=== PATIENT | female | born 1970 | race Caucasian/White ===

== ENCOUNTER 2017-03-02 19:16 | Inpatient (IN) | payer OTHER ==
[2017-03-02] MEDS ORDERED: ONDANSETRON HCL/PF 4 MG/ 2ML VIAL IVP ONE (19:43)
[2017-03-02] MEDS ORDERED: 0.9 % SODIUM CHLORIDE 1,000 ML IV ONE (19:43)
[2017-03-02 20:20] LABS: BASOPHILS % 0.4 (0.0-1.5); EOSINOPHILS % 1.1 % (0.0-6.8); MEAN CORPUSCULAR HEMOGLOBIN 30.1 pg (28.0-34.0); MONOCYTES % 4.3 % (0.0-11.0); NEUTROPHILS # 22.2 # k/uL (1.4-7.7)
[2017-03-02 20:33] LABS: eGFR (African) > 60; eGFR (Non-African) > 60
[2017-03-02] MEDS ORDERED: INSULIN REGULAR, HUMAN 100 UNIT/ML 3ML VIAL SQ ONE (21:15)
[2017-03-02] MEDS ORDERED: VANCOMYCIN HCL 1.25 GM in 0.9 % SODIUM CHLORIDE 500 ML IV ONE (21:16)
--- NOTE | 2017-03-02 21:18 | ED Physician Documentation ---
General Adult - HISTORIAN Historian: patient - HPI Stated Complaint: Michael-rectal abcess Chief Complaint: General Adult Onset: days ago Timing: still present Severity: moderate Further Comments: yes (Pt is a 46 yo female with a michael-rectal abscess. Pt had abscess lanced yesterday with her pcp and was started on Doxycycline 100 mg po bid. Pt has been feeling ill today with nausea and fever. Pt has hx of MRSA infections.) - ROS CONST: chills, other (malaise) EYES/ENT: none CVS/RESP: none GI/: nausea MS/SKIN/LYMPH: other (perirectal abscess) - PAST HX Past History: other (DM, GERD, HTN, HLD) Allergies/Adverse Reactions: Allergies Allergy/AdvReac Type Severity Reaction Status Date / Time Penicillins Allergy Intermediate Verified 03/02/17 20:02 Home Medications: Ambulatory Orders Medication Instructions Recorded Gabapentin [Gabapentin] 1 cap PO TID 07/05/13 Losartan Potassium [Losartan 1 tab PO DAILY 10/27/14 Potassium] Metformin HCl [Glucophage] 1 tab PO BID 10/27/14 Omeprazole [Omeprazole] 1 tab PO DAILY 10/27/14 Atorvastatin Calcium [Lipitor] 40 mg PO DAILY 02/19/15 Doxycycline Hyclate 100 mg PO BID 03/02/17 Ondansetron HCl Rapdis [Zofran Odt] 8 mg PO Q8 03/02/17 - SOCIAL HX Smoking History: non-smoker - FAMILY HX Family History: No - VITAL SIGNS Vital Signs: Vital Signs Temp Pulse Resp BP Pulse Ox 100.4 F H 121 H 18 135/73 93 03/02/17 19:25 03/02/17 19:25 03/02/17 19:25 03/02/17 19:25 03/02/17 19:25 - REVIEWED ASSESSMENTS Nursing Assessment Reviewed: Yes Vitals Reviewed: Yes Progress - Progress Progress: NS 1 L IVF Zofran 4 mg IV Insulin regular, 10 units sq Vancomycin 125 mg IV Admit to [facility] ED Results Lab/Radiology - Lab Results Lab Results: Lab Results 03/02/17 03/02/17 20:15 20:15 WBC 25.80 K/ul H K/ul (4.00-12.00) RBC 4.76 M/ul M/ul (3.90-5.20) Hgb 14.4 g/dL g/dL (12.0-16.0) Hct 41.0 % % (34.5-46.5) MCV 86.0 fl fl (80.0-100.0) MCH 30.1 pg pg (28.0-34.0) MCHC 35.0 g/dL g/dL (30.0-36.0) RDW 13.2 % % (11.3-14.3) Plt Count 320 K/mm3 K/mm3 (130-400) Neut % (Auto) 85.8 % H % (39.0-79.0) Lymph % (Auto) 7.2 % L % (16.0-50.0) [place] % (Auto) 4.3 % % (0.0-11.0) Eos % (Auto) 1.1 % % (0.0-6.8) Baso % (Auto) 0.4 (0.0-1.5) Neut # (Auto) 22.2 # k/uL H # k/uL (1.4-7.7) Lymph # (Auto) 1.8 # k/uL # k/uL (0.6-4.0) [place] # (Auto) 1.1 # k/uL H # k/uL (0.0-0.9) Eos # (Auto) 0.3 # k/uL # k/uL (0.0-0.6) Baso # (Auto) 0.1 # k/uL # k/uL (0.0-0.5) Reactive Lymphs % 1.2 % % (0.0-5.0) Reactive Lymphs # 0.3 # k/uL # k/uL (0.0-0.8) Sodium 132 mmol/L L mmol/L (136-145) Potassium 4.2 mmol/L mmol/L (3.5-5.0) Chloride 96 mmol/L L mmol/L (98-110) Carbon Dioxide 28 mmol/L mmol/L (20-32) BUN 19 mg/dL mg/dL (10-26) Creatinine 1.0 mg/dL mg/dL (0.4-1.5) Estimated Creat Clear 130 Est GFR ( Amer) > 60 (60 - ) Est GFR (Non-Af Amer) > 60 (60 - ) Glucose 396 mg/dL H mg/dL (70-99) Calcium 10.6 mg/dL H mg/dL (8.5-10.5) Total Bilirubin 0.3 mg/dL mg/dL (0.2-1.2) AST 15 U/L U/L (0-41) ALT 13 U/L U/L (0-45) Alkaline Phosphatase 118 U/L H U/L (46-116) Total Protein 7.5 g/dL g/dL (6.0-8.5) Albumin 4.2 g/dL g/dL (3.0-5.5) - Orders Orders: ED Orders Category Date Time Status Place IV Lock 1T Care 03/02/17 19:42 Active BLOOD CULTURE Stat Lab 03/02/17 Ordered CBC/PLATELET/DIFF Routine Lab 03/02/17 20:15 Completed CMP Routine Lab 03/02/17 20:15 Completed UA [URINALYSIS] Routine Lab 03/02/17 Ordered 0.9 % Sodium Chloride [Normal Saline] 1,000 ml Med 03/02/17 19:43 Discontinued IV Q1H Ondansetron HCl/Pf [Zofran 4 mg/2 ml] Med 03/02/17 19:43 Discontinued 4 mg IVP NOW ONE General Adult Physical Exam - PHYSICAL EXAM GENERAL APPEARANCE: moderate distress EENT: pharynx normal NECK: normal inspection, supple RESPIRATORY: no resp distress, chest non-tender, breath sounds normal CVS: reg rate & rhythm, heart sounds normal ABDOMEN: soft, no organomegaly, normal bowel sounds BACK: normal inspection, no CVA tenderness SKIN: other (Michael-rectal abscess, 8 cm diameter) EXTREMITIES: non-tender, normal range of motion, no evidence of injury NEURO: oriented X3, motor nml, sensation nml Discharge Clincal Impression: Abscess, Sepsis, Hyperglycemia, Diabetes Referrals: Iron Bill DO [REFERRING] - Home Medications: Ambulatory Orders Gabapentin [Gabapentin] 1 cap PO TID 07/05/13 Losartan Potassium [Losartan Potassium] 1 tab PO DAILY 10/27/14 Metformin HCl [Glucophage] 1 tab PO BID 10/27/14 Omeprazole [Omeprazole] 1 tab PO DAILY 10/27/14 Atorvastatin Calcium [Lipitor] 40 mg PO DAILY 02/19/15 Doxycycline Hyclate 100 mg PO BID 03/02/17 Ondansetron HCl Rapdis [Zofran Odt] 8 mg PO Q8 03/02/17 Condition: Stable Disposition: 09 ADMITTED INPATIENT Decision to Admit: [id number] Decision Time: 21:25
[2017-03-02] MEDS ORDERED: ONDANSETRON HCL 4 MG TAB.RAPDIS PO PRN (21:37)
[2017-03-02] MEDS ORDERED: DOXYCYCLINE MONOHYDRATE 100 MG CAPSULE PO ONE (21:38)
[2017-03-02] MEDS ORDERED: ACETAMINOPHEN 500 MG TABLET PO ONE (21:44)
[2017-03-02] MEDS ORDERED: ACETAMINOPHEN 500 MG TABLET ONE (21:45)
[2017-03-02] MEDS ORDERED: IBUPROFEN 400 MG TABLET PO PRN (21:46)
[2017-03-02] MEDS: DOXYCYCLINE MONOHYDRATE 100 MG CAPSULE PO SCH (22:11)
[2017-03-02 22:30] VITALS: BMI 35.9
[2017-03-02] MEDS: 0.9 % SODIUM CHLORIDE 1,000 ML IV SCH ×2 (23:58→23:59)
[2017-03-03] MEDS: ACETAMINOPHEN 325 MG TABLET PO PRN ×3 (04:25→19:44)
[2017-03-03 05:37] LABS: APPEARANCE,URINE CLOUDY (CLEAR); COLOR,URINE YELLOW (YELLOW); OCCULT BLOOD,URINE 1+ (NEGATIVE); PH URINE 5.5 (5.0 - 8.0)
[2017-03-03 07:21] LABS: MEAN CORPUSCULAR VOLUME 86.6 fl (80.0-100.0)
[2017-03-03 07:22] LABS: MEAN CORPUSCULAR HEMOGLOBIN 30.8 pg (28.0-34.0)
[2017-03-03 07:23] LABS: BASOPHILS % 1.1 (0.0-1.5); EOSINOPHILS % 0.6 % (0.0-6.8); MONOCYTES % 4.4 % (0.0-11.0)
[2017-03-03] MEDS: INSULIN REGULAR, HUMAN 100 UNIT/ML 3ML VIAL SQ SCH ×4 (07:35→19:52)
[2017-03-03 07:48] LABS: eGFR (African) > 60; eGFR (Non-African) > 60
--- NOTE | 2017-03-03 08:18 | History and Physical Report ---
History of Present Illnes - History of Present Illness Reason for Visit: Elevated white count with acute skin infection and elevated blood sugars. History of Present Illness: 46 year old female presented to the ER after not feeling well. She noted she had seen her primary the day before and had an abscess in her rectal area drained. She noted she had picked up the prescription for Doxycycline until yesterday and so had only taken one or two doses. She states last night she felt like she was running a fever and was not feeling well. She states the infected area on her bottom was draining and very red. She was found to have a fever of 101 in the ER and an elevated WBC. She states she was given IV antibiotics in the ER and is feeling a lot better this morning. She notes she feels like she stinks and would like to leave. She states when she was admitted she only agreed to stay one night and is now ready to leave. She as agreed to stay for another dose of antibiotics. She states her blood sugars have been high and she was prescribed insulin by her PCP, oNva Monreal NP. She states it cost too much and so she has not been using it. She notes Nova Monreal has been trying to find a way to get her the medication for cheaper but she is still working on it. She denies any other concerns today. - Past Medical History Cardiac: HTN, Hyperlipidemia Pulmonary: denies: Asthma PHP CONSULTANT: Peripheral neuropathy Endocrine: Diabetes Dermatology: Other (abscess of left buttock ) - Past Surgical History Past Surgical History: Cholecystectomy, Hysterectomy - Past Social History Smoke: 1 pack per day, Quit (1 year ago) Alcohol: None Drugs: None Lives: Alone - Health Maintenance Health Maintenance: Influenza Vaccine. denies: Pneumococcal Vaccine Influenza Vaccine: Current for this Influenza Season Pneumonia Vaccine: No Resuscitation Status: Resusciation Status Resuscitation Status Full Code Review of Systems - Review of Systems Constitutional: Fever (on admission no fever now) Eyes: negative: vision change ENT: negative: Ear Pain Respiratory: negative: Cough, SOB with Excertion Cardiovascular: negative: Chest Pain Gastrointestinal: negative: Nausea, Melena Genitourinary: negative: Dysuria, Deferred Musculoskeletal: negative: Back Pain, Leg Pain Skin: Other (abscess left buttock that has been drained and was lanced by Nova Monreal on 03/01/2017) Neurological: negative: Weakness, Numbness, Change in Speech, Confusion - Medications/Allergies Allergies/Adverse Reactions: Allergies Allergy/AdvReac Type Severity Reaction Status Date / Time Penicillins Allergy Intermediate Verified 03/02/17 20:02 Home Medications: Home Medications Doxycycline Hyclate 100 mg PO BID 03/02/17 Ondansetron HCl Rapdis [Zofran Odt] 8 mg PO Q8 03/02/17 Current Inpatient Medications: Current Inpatient Medications Acetaminophen (Tylenol) 650 mg PO Q6H PRN PRN Reason: Fever >101 Last Admin: 03/03/17 04:25 Dose: 650 mg Atorvastatin Calcium (Lipitor) 40 mg PO HS SARAHI Doxycycline Monohydrate (Vibramycin) 100 mg PO BID [facility] Stop: 03/12/17 21:59 Last Admin: 03/02/17 22:11 Dose: Not Given Gabapentin (Neurontin) mg PO TID [facility] Sodium Chloride (Normal Saline) 1,000 mls @ 100 mls/hr IV Q10H [facility] Last Admin: 03/02/17 23:59 Dose: Not Given Vancomycin HCl 1.25 gm/ Sodium (Chloride) 250 mls @ 250 mls/hr IV QD [facility] Ibuprofen (Advil) 400 mg PO Q8H PRN PRN Reason: PAIN OR TEMPERATURE > 101 Insulin Human Regular (Humulin R) 0 unit SQ CHEMQID SARAHI PRN Reason: Protocol Last Admin: 03/03/17 07:35 Dose: 6 unit Losartan Potassium (Cozaar) mg PO DAILY [facility] Metformin HCl (Glucophage) mg PO BID [facility] Miscellaneous (Chem Sticks) 1 each CHEMQID [facility] Last Admin: 03/03/17 07:33 Dose: 1 each Ondansetron HCl (Zofran Odt) 8 mg PO Q8 PRN PRN Reason: Nausea / Vomiting Pantoprazole Sodium (Protonix) 40 mg PO DAILY [facility] Exam - Exam Vital Signs: Vital Signs (72 hours) 03/02/17 03/02/17 03/03/17 22:00 22:26 02:00 Temperature 101.9 F H 104.1 F H 100.8 F H Pulse Rate [ 127 H 118 H 117 H Pulse ox] Respiratory 20 20 24 Rate Blood Pressure 141/86 128/73 158/93 [Left Arm] O2 Sat by Pulse 95 93 95 Oximetry 03/03/17 06:00 Temperature 101.8 F H Pulse Rate [ 126 H Pulse ox] Respiratory 24 Rate Blood Pressure 166/90 [Left Arm] O2 Sat by Pulse 93 Oximetry General: Alert, Oriented to Person, Oriented to Place, Oriented to Time, Cooperative HEENT: Atraumatic, PERRLA, EOMI, Mouth Mucous membr. moist/[place], Nose Mucous membr. moist/[place] Neck: Normal Range of Motion Lungs: Clear to auscultation, Normal air movement, Speaks full Sentences Cardiovascular: Regular rate, Normal S1, Normal S2 Abdomen: Normal bowel sounds, Soft, No tenderness Integumentary: Warm, Dry, Cellulitis, Erythema (Surrounding draining odorous abscess of left buttock that is very tender to palpation ) Extremities: No clubbing, No cyanosis, No edema, Normal pulses, No tenderness/ swelling Neurological: Normal gait, Normal speech, Strength Equal Bilat, Normal tone, Sensation intact Psych/Mental Status: Mental status NL, Mood NL, Appropriate Affect - Laboratory Results Laboratory Results: Laboratory Results 03/03/17 03/03/17 07:15 07:15 WBC 30.90 H RBC 3.84 L Hgb 11.9 L Hct 33.3 L MCV 86.6 MCH 30.8 MCHC 35.6 RDW 13.0 Plt Count 348 Neut % (Auto) 84.0 H Lymph % (Auto) 8.3 L [place] % (Auto) 4.4 Eos % (Auto) 0.6 Baso % (Auto) 1.1 Neut # (Auto) 26.0 H Lymph # (Auto) 2.6 [place] # (Auto) 1.4 H Eos # (Auto) 0.2 Baso # (Auto) 0.3 Reactive Lymphs % 1.6 Reactive Lymphs # 0.5 Sodium 132 L Potassium 3.8 Chloride 101 Carbon Dioxide 22 BUN 18 Creatinine 1.0 Estimated Creat Clear 127 Est GFR ( Amer) > 60 Est GFR (Non-Af Amer) > 60 Glucose 296 H Calcium 10.2 Total Bilirubin 0.3 AST 13 ALT 11 Alkaline Phosphatase 114 Total Protein 6.9 Albumin 3.9 Assessment/Plan - Assessment/Plan (1) Cellulitis and abscess of buttock Status: Acute Current Visit: Yes Assessment: Draining abscess of left buttock with large area of surrounding erythema. The area was lanced by Nova Morneal NP on 03/01/2017. Patient is running intermittent fever and was found to have a fever of 101 at time of admission. White blood cells count is elevated at time of admission at over 25,000 it was found to be even higher at this morning's blood draw at 30,000. The area is very tender to palpation and patient appears to be very uncomfortable when sitting on the area. The area is very malodorous. Plan: Blood cultures ordered in ER. Vancomycin started empirically in addition to oral doxycycline that was started by PCP Nova Monreal NP. Repeat WBC in am. Discussed with patient that this is a very serious infection that could result in severe infection and illness including but not limited to . Patient voices understanding an has agreed to stay one additional night for additional antibiotic treatment. (2) Diabetes type 2, uncontrolled Status: Acute Current Visit: Yes Assessment: Sugar elevated on admission at 396. She notes she has been prescribed insulin by her PCP, Nova Monreal NP however the medication is too expensive and she has not been taking it. She states Nova Monreal is aware that the medication is too expensive and is working on getting her the medication at a lower cost. She states she does not want to change her medication regimen at this time but rather follow up with Nova Monreal NP as outpatient. Plan: Patient will have QID chem checks and will receive insulin during her stay. Discussed with the patient the importance of controlling her blood sugar to assist with healing of the infection. She voices understanding and agrees to this plan. VTE Assessment - RISK FACTOR SCORE VTE RISK FACTOR SCORES: AGE 40-60 YEARS, OBESITY, SEPSIS - RISK VTE MODERATE RISK: SCORE OF 2 (RISK PROXIMAL DVT 2-4%) PROPHYAXIS NEEDED
[2017-03-03] MEDS: DOXYCYCLINE MONOHYDRATE 100 MG CAPSULE PO SCH ×2 (08:44→19:45)
[2017-03-03] MEDS: PANTOPRAZOLE SODIUM 40 MG TABLET PO SCH (08:44)
[2017-03-03] MEDS: VANCOMYCIN HCL 1.25 GM in 0.9 % SODIUM CHLORIDE 250 ML IV SCH (09:22)
[2017-03-03] MEDS ORDERED: SALINE FLUSH 10 ML DISP.SYRIN IVF ONE ×2 (09:29→11:37)
[2017-03-03] MEDS: LOSARTAN POTASSIUM 50 MG TABLET PO SCH (10:27)
[2017-03-03] MEDS: GABAPENTIN 300 MG CAPSULE PO SCH ×3 (10:27→18:30)
[2017-03-03] MEDS: ATORVASTATIN CALCIUM 80 MG TABLET PO SCH (19:47)
[2017-03-03] MEDS: 0.9 % SODIUM CHLORIDE 1,000 ML IV SCH (21:34)
[2017-03-04 06:04] LABS: BASOPHILS % 0.5 (0.0-1.5); EOSINOPHILS % 0.5 % (0.0-6.8); MEAN CORPUSCULAR HEMOGLOBIN 28.7 pg (28.0-34.0); MEAN CORPUSCULAR VOLUME 85.7 fl (80.0-100.0); MONOCYTES % 4.9 % (0.0-11.0)
[2017-03-04 06:30] LABS: eGFR (African) > 60; eGFR (Non-African) > 60
[2017-03-04] MEDS: 0.9 % SODIUM CHLORIDE 1,000 ML IV SCH ×2 (08:50→13:06)
[2017-03-04] MEDS: INSULIN REGULAR, HUMAN 100 UNIT/ML 3ML VIAL SQ SCH ×4 (08:51→20:25)
[2017-03-04] MEDS: GABAPENTIN 300 MG CAPSULE PO SCH ×3 (08:52→18:10)
[2017-03-04] MEDS: DOXYCYCLINE MONOHYDRATE 100 MG CAPSULE PO SCH ×2 (08:52→20:19)
[2017-03-04] MEDS: PANTOPRAZOLE SODIUM 40 MG TABLET PO SCH (08:52)
[2017-03-04] MEDS ORDERED: SALINE FLUSH 10 ML DISP.SYRIN IVF ONE (08:52)
[2017-03-04] MEDS: LOSARTAN POTASSIUM 50 MG TABLET PO SCH (08:53)
--- NOTE | 2017-03-04 08:53 | Inpatient Progress Note ---
Subjective - Required Recertification Statement I anticipate X number of days because-include discharge plan: >2 - Review of Systems Events since last encounter: The patient has had several dose of vancomycin IV and is getting doxycycline PO. She states she is feeling fine. She was found to be running a fever of 101 again last night. Her WBC is 29,000 today down from 30,000. Dr. Hammond was consulted to reiterate the importance of her staying until her infection is better under control. She has agreed to stay with us. She has been on insulin since her arrival but blood sugars are still elevated at over 300 on todays blood draw. Subjective: She notes her back is sore and she is ready to leave. She states she knows her WBC is still very elevated, she knows she has a very bad infection, and she knows that people sometimes from infections like this. She states she understands that she is very sick but would still like to leave today and follow up with her PCP as outpatient. She states she is having a little more pain today when sitting/putting pressure on her bottom. She states she is feeling well. She notes her sugars are up again and she did have some soda last night. She states she used to be on Glipizide for her diabetes and did well with that. She states she was going to talk to her PCP about restarting it since the insulin is too expensive. After taking to social services designee and Dr. Hammond she has agreed to stay another night. She denies feeling like she is having a fever or any other concerns at this time. General: Denies: Chills, Fatigue HEENT: Denies: Visual Changes Cardiovascular: Denies: Chest Pain, Light Headedness Gastrointestinal: Denies: Nausea, Vomiting, Abdominal Pain, Diarrhea, Constipation Genitourinary: Denies: Dysuria Musculoskeletal: Back Pain (stiff and sore muscles from sitting and laying in bed all day) Neurological: Other (diabetic neuropathy). Denies: Change in Speech, Confusion Objective - Exam Vitals and I&O: Vital Signs Temp 98.9 F 03/04/17 06:06 Pulse 116 H 03/04/17 06:06 Resp 16 03/04/17 06:06 BP 131/68 03/04/17 06:06 Pulse Ox 93 03/04/17 06:06 Intake & Output 03/03/17 03/03/1703/04/17 11:59 23:59 11:59 Intake Total 2500 2110 1000 Balance 2500 2110 1000 Weight 97.976 kg Intake: IV 1900 1400 1000 Left Hand 1900 1400 1000 Oral 600 710 Other: Voiding Method Toilet Toilet # Voids 2 3 4 General: Alert, Oriented to Person, Oriented to Place, Oriented to Time, Cooperative HEENT: Atraumatic, EOMI, Mouth Mucous membr. moist/[place], Nose Mucous membr. moist/[place] Neck: Supple Lungs: Clear to auscultation, Normal air movement, Speaks full Sentences Cardiovascular: Regular rate, Normal S1, Normal S2 Abdomen: Normal bowel sounds, Soft, No tenderness Extremities: No clubbing, No cyanosis, No edema, No tenderness/swelling Skin: Warm, Erythema (and odorous abscess of left buttock with surrounding induration and erythema) Neurological: Normal gait, Normal speech, Strength Equal Bilat, Normal tone Psych/Mental Status: Mental status NL, Mood NL, Appropriate Affect - Results Results: Laboratory Results WBC 29.60 K/ul (4.00-12.00) H 03/04/17 06:00 RBC 3.89 M/ul (3.90-5.20) L 03/04/17 06:00 Hgb 11.2 g/dL (12.0-16.0) L 03/04/17 06:00 Hct 33.3 % (34.5-46.5) L 03/04/17 06:00 MCV 85.7 fl (80.0-100.0) 03/04/17 06:00 MCH 28.7 pg (28.0-34.0) 03/04/17 06:00 MCHC 33.5 g/dL (30.0-36.0) 03/04/17 06:00 RDW 13.1 % (11.3-14.3) 03/04/17 06:00 Plt Count 352 K/mm3 (130-400) 03/04/17 06:00 Neut % (Auto) 81.0 % (39.0-79.0) H 03/04/17 06:00 Lymph % (Auto) 11.1 % (16.0-50.0) L 03/04/17 06:00 [place] % (Auto) 4.9 % (0.0-11.0) 03/04/17 06:00 Eos % (Auto) 0.5 % (0.0-6.8) 03/04/17 06:00 Baso % (Auto) 0.5 (0.0-1.5) 03/04/17 06:00 Neut # (Auto) 24.0 # k/uL (1.4-7.7) H 03/04/17 06:00 Lymph # (Auto) 3.3 # k/uL (0.6-4.0) 03/04/17 06:00 [place] # (Auto) 1.4 # k/uL (0.0-0.9) H 03/04/17 06:00 Eos # (Auto) 0.2 # k/uL (0.0-0.6) 03/04/17 06:00 Baso # (Auto) 0.2 # k/uL (0.0-0.5) 03/04/17 06:00 Reactive Lymphs % 2.0 % (0.0-5.0) 03/04/17 06:00 Reactive Lymphs # 0.6 # k/uL (0.0-0.8) 03/04/17 06:00 Sodium 131 mmol/L (136-145) L 03/04/17 06:00 Potassium 3.6 mmol/L (3.5-5.0) 03/04/17 06:00 Chloride 102 mmol/L (98-110) 03/04/17 06:00 Carbon Dioxide 21 mmol/L (20-32) 03/04/17 06:00 BUN 16 mg/dL (10-26) 03/04/17 06:00 Creatinine 1.0 mg/dL (0.4-1.5) 03/04/17 06:00 Estimated Creat Clear 127 03/04/17 06:00 Est GFR ( Amer) > 60 (60-) 03/04/17 06:00 Est GFR (Non-Af Amer) > 60 (60-) 03/04/17 06:00 Glucose 312 mg/dL (70-99) H 03/04/17 06:00 Calcium 9.4 mg/dL (8.5-10.5) 03/04/17 06:00 Total Bilirubin 0.2 mg/dL (0.2-1.2) 03/04/17 06:00 AST 16 U/L (0-41) 03/04/17 06:00 ALT 15 U/L (0-45) 03/04/17 06:00 Alkaline Phosphatase 120 U/L (46-116) H 03/04/17 06:00 Total Protein 6.3 g/dL (6.0-8.5) 03/04/17 06:00 Albumin 3.6 g/dL (3.0-5.5) 03/04/17 06:00 Urine Color Yellow (YELLOW) 03/02/17 21:05 Urine Appearance Cloudy (CLEAR) H 03/02/17 21:05 Urine pH 5.5 (5.0 - 8.0) 03/02/17 21:05 Ur Specific [place] 1.025 (1.010-1.030) 03/02/17 21:05 Urine Protein 3+ mg/dL (NEGATIVE) H 03/02/17 21:05 Urine Ketones Negative mg/dL (NEGATIVE) 03/02/17 21:05 Urine Occult Blood 1+ (NEGATIVE) H 03/02/17 21:05 Urine Nitrite Negative (NEGATIVE) 03/02/17 21:05 Urine Bilirubin Negative (NEGATIVE) 03/02/17 21:05 Urine Urobilinogen 1.0 Eu (0.2-1.0) 03/02/17 21:05 Ur Leukocyte Esterase Negative (NEGATIVE) 03/02/17 21:05 Urine Glucose 2+ mg/dL (NEGATIVE) H 03/02/17 21:05 - Procedures Procedures: US of left buttock Assessment/Plan - Assessment/Plan (1) Cellulitis and abscess of buttock Status: Acute Current Visit: Yes Assessment: Area of erythema and induration is slightly more firm today. Case was discussed with Dr. Hammond and it was determined that an US will be ordered to ensure there is no pus pocket beneath the skin. Vancomycin will be continued IV and a trough will be checked in the morning. Doxycycline will be continued PO. Preliminary wound culture obtained from Nova Monreal's office which shows Group B strep and staph aureus. Sensitivities are pending. Blood cultures are still pending. Patient ran a fever overnight again of 101. WBC count remains elevated at 29,000 today. Plan: Continue Vancomycin IV and doxycycline PO. US of area ordered to look for fluid collection that may require surgical drainage. Will follow up with Nova Monreal's office for sensitivity report when available. Blood cultures are still pending. Patient has agreed to stay for another night for additional antibiotic treatment. (2) Diabetes type 2, uncontrolled Status: Acute Current Visit: Yes Assessment: Blood sugars remain elevated. Discussed with patient who states she used to take Glipizide. She states she would like to resume glipizide in addition to her insulin and metformin. She notes she did have soda last night but has been trying to drink only water today since her sugars are up still. Plan: Watch diet and try to drink less sugary drinks. Add glipizide.
[2017-03-04] MEDS: VANCOMYCIN HCL 1.25 GM in 0.9 % SODIUM CHLORIDE 250 ML IV SCH (09:32)
--- NOTE | 2017-03-04 13:40 | Diagnostic Imaging Report ---
[facility] [id number] [id number] Report Submission Date: Mar 04, 2017 1:14:28 PM CDT Patient Study Name: GRAZYNA STOVALL Date: Mar 04, 2017 12:30:04 PM CDT Modality Type: US Gender: F Description: ULTRASOUND UNLISTED PROC : 70 Institution: [facility] Physician: [facility] Ultrasound left buttock Clinical history: Pain, redness and swelling with elevated white cell count. The patient is on antibiotics. Technique: Real time sonography of the left buttock is performed in transverse and longitudinal views. Findings: There is a skin thickening and interstitial edema throughout the visualized area. There is no drainable fluid collection to suggest abscess. There are echogenic areas with "dirty" shadowing consistent with air in the subcutaneous soft tissues. Impression: 1. Interstitial edema and subcutaneous air. Rule out necrotizing infection. 2. No drainable fluid collection. Electronically signed on Mar 04, 2017 1:14:28 PM CDT by: Thomas COX
[2017-03-04] MEDS: ATORVASTATIN CALCIUM 80 MG TABLET PO SCH (20:19)
[2017-03-05] MEDS: INSULIN REGULAR, HUMAN 100 UNIT/ML 3ML VIAL SQ SCH ×4 (07:52→20:34)
[2017-03-05] MEDS ORDERED: SALINE FLUSH 10 ML DISP.SYRIN IVF ONE (09:07)
[2017-03-05 09:23] LABS: BASOPHILS % 0.4 (0.0-1.5); EOSINOPHILS % 1.3 % (0.0-6.8); MEAN CORPUSCULAR HEMOGLOBIN 29.4 pg (28.0-34.0); MEAN CORPUSCULAR VOLUME 85.7 fl (80.0-100.0); MONOCYTES % 4.7 % (0.0-11.0); NEUTROPHILS # 23.2 # k/uL (1.4-7.7)
[2017-03-05 09:31] LABS: eGFR (African) > 60; eGFR (Non-African) > 60
[2017-03-05] MEDS: GABAPENTIN 300 MG CAPSULE PO SCH ×3 (09:58→16:57)
[2017-03-05] MEDS: DOXYCYCLINE MONOHYDRATE 100 MG CAPSULE PO SCH ×2 (09:58→20:37)
[2017-03-05] MEDS: PANTOPRAZOLE SODIUM 40 MG TABLET PO SCH (09:58)
[2017-03-05] MEDS: LOSARTAN POTASSIUM 50 MG TABLET PO SCH (10:03)
[2017-03-05] MEDS: VANCOMYCIN HCL 1.25 GM in 0.9 % SODIUM CHLORIDE 250 ML IV SCH (10:39)
[2017-03-05] MEDS: 0.9 % SODIUM CHLORIDE 1,000 ML IV SCH (13:19)
[2017-03-05] MEDS: IBUPROFEN 200 MG TABLET PO PRN ×2 (13:21→20:38)
--- NOTE | 2017-03-05 17:37 | Inpatient Progress Note ---
Subjective - Required Recertification Statement I anticipate X number of days because-include discharge plan: 2 - Review of Systems Events since last encounter: Patient's Vancomycin Trough was drawn this morning and was found to be 6.7. Glipizide was added back to her diabetes regimen. Blood sugar this morning was 189 which is considerably better than it was on admission. US was done yesterday and no pus pocket was found. Patient states she feels fine and is ready to go home anytime. Her WBC count was down to 27,000 today. Subjective: Patient appears to be more willing to stay until her white count is down today. She states she is having a little less pain today compared to when sitting/ putting pressure on her bottom. She states she is feeling well. She notes her sugars are doing a lot better today. She states she used to be on Glipizide for her diabetes and did well with that. She denies feeling like she is having a fever or any other concerns at this time. General: Denies: Chills, Fatigue HEENT: Denies: Head Aches Cardiovascular: Denies: Chest Pain Gastrointestinal: Denies: Nausea, Vomiting, Abdominal Pain Objective - Exam Vitals and I&O: Vital Signs Temp 97.3 F L 03/05/17 14:00 Pulse 91 H 03/05/17 14:00 Resp 18 03/05/17 14:00 BP 118/52 03/05/17 14:00 Pulse Ox 97 03/05/17 14:00 Intake & Output 03/04/17 03/05/17 03/05/17 23:59 11:59 23:59 Intake Total 1870 680 980 Balance 1870 680 980 Intake: IV 860 Right Hand 860 Oral 1010 470 980 Other 210 Other: Voiding Method Toilet Toilet # Voids 4 3 2 General: Alert, Oriented to Person, Oriented to Place, Oriented to Time, Cooperative HEENT: Atraumatic, Mouth Mucous membr. moist/[place], Nose Mucous membr. moist/[place] Neck: Supple Lungs: Clear to auscultation Cardiovascular: Regular rate, Normal S1, Normal S2 Abdomen: Normal bowel sounds, Soft, No tenderness Extremities: No clubbing, No cyanosis, No edema, Normal pulses Skin: Warm, Erythema (slowly improving erythema with assocaited draining malodorous abdscess that is still very tender to palpation.) Neurological: Normal gait, Strength Equal Bilat, Normal tone Psych/Mental Status: Mental status NL, Mood NL - Results Results: Laboratory Results WBC 27.90 K/ul (4.00-12.00) H 03/05/17 08:50 RBC 3.75 M/ul (3.90-5.20) L 03/05/17 08:50 Hgb 11.0 g/dL (12.0-16.0) L 03/05/17 08:50 Hct 32.1 % (34.5-46.5) L 03/05/17 08:50 MCV 85.7 fl (80.0-100.0) 03/05/17 08:50 MCH 29.4 pg (28.0-34.0) 03/05/17 08:50 MCHC 34.3 g/dL (30.0-36.0) 03/05/17 08:50 RDW 13.2 % (11.3-14.3) 03/05/17 08:50 Plt Count 436 K/mm3 (130-400) H 03/05/17 08:50 Neut % (Auto) 83.1 % (39.0-79.0) H 03/05/17 08:50 Lymph % (Auto) 9.3 % (16.0-50.0) L 03/05/17 08:50 [place] % (Auto) 4.7 % (0.0-11.0) 03/05/17 08:50 Eos % (Auto) 1.3 % (0.0-6.8) 03/05/17 08:50 Baso % (Auto) 0.4 (0.0-1.5) 03/05/17 08:50 Neut # (Auto) 23.2 # k/uL (1.4-7.7) H 03/05/17 08:50 Lymph # (Auto) 2.6 # k/uL (0.6-4.0) 03/05/17 08:50 [place] # (Auto) 1.3 # k/uL (0.0-0.9) H 03/05/17 08:50 Eos # (Auto) 0.4 # k/uL (0.0-0.6) 03/05/17 08:50 Baso # (Auto) 0.1 # k/uL (0.0-0.5) 03/05/17 08:50 Reactive Lymphs % 1.3 % (0.0-5.0) 03/05/17 08:50 Reactive Lymphs # 0.4 # k/uL (0.0-0.8) 03/05/17 08:50 Sodium 134 mmol/L (136-145) L 03/05/17 08:50 Potassium 3.6 mmol/L (3.5-5.0) 03/05/17 08:50 Chloride 106 mmol/L (98-110) 03/05/17 08:50 Carbon Dioxide 21 mmol/L (20-32) 03/05/17 08:50 BUN 20 mg/dL (10-26) 03/05/17 08:50 Creatinine 1.0 mg/dL (0.4-1.5) 03/05/17 08:50 Estimated Creat Clear 127 03/05/17 08:50 Est GFR ( Amer) > 60 (60-) 03/05/17 08:50 Est GFR (Non-Af Amer) > 60 (60-) 03/05/17 08:50 Glucose 182 mg/dL (70-99) H 03/05/17 08:50 Calcium 8.9 mg/dL (8.5-10.5) 03/05/17 08:50 Total Bilirubin 0.2 mg/dL (0.2-1.2) 03/04/17 06:00 AST 16 U/L (0-41) 03/04/17 06:00 ALT 15 U/L (0-45) 03/04/17 06:00 Alkaline Phosphatase 120 U/L (46-116) H 03/04/17 06:00 Total Protein 6.3 g/dL (6.0-8.5) 03/04/17 06:00 Albumin 3.6 g/dL (3.0-5.5) 03/04/17 06:00 Urine Color Yellow (YELLOW) 03/02/17 21:05 Urine Appearance Cloudy (CLEAR) H 03/02/17 21:05 Urine pH 5.5 (5.0 - 8.0) 03/02/17 21:05 Ur Specific [place] 1.025 (1.010-1.030) 03/02/17 21:05 Urine Protein 3+ mg/dL (NEGATIVE) H 03/02/17 21:05 Urine Ketones Negative mg/dL (NEGATIVE) 03/02/17 21:05 Urine Occult Blood 1+ (NEGATIVE) H 03/02/17 21:05 Urine Nitrite Negative (NEGATIVE) 03/02/17 21:05 Urine Bilirubin Negative (NEGATIVE) 03/02/17 21:05 Urine Urobilinogen 1.0 Eu (0.2-1.0) 03/02/17 21:05 Ur Leukocyte Esterase Negative (NEGATIVE) 03/02/17 21:05 Urine Glucose 2+ mg/dL (NEGATIVE) H 03/02/17 21:05 Vancomycin Trough 6.7 ug/mL (10.0-20.0) L 03/05/17 08:50 Assessment/Plan - Assessment/Plan (1) Cellulitis and abscess of buttock Status: Acute Current Visit: Yes Assessment: Vancomycin trough level was 6.7. WBC count was slightly improved today at 27, 000. Patient's discomfort with sitting is slightly improved today. Erythema and inflammation associated with the infection are improving some but slowly. Plan: Increase Vancomycin dosing to 1g BID. Continue Doxycycline. Will continue to be in contact with [facility] office to get wound culture results as soon as possible. Ibuprofen ordered for swelling and pain PRN. (2) Diabetes type 2, uncontrolled Status: Acute Current Visit: Yes Assessment: Blood sugars are better today and are below 100. Patient would like to continue glipizide on discharge. She states she did better with her diet yesterday. Plan: Continue QID monitoring. Continue glipizide and insulin. Patient to continue to monitor diet.
[2017-03-05] MEDS: ATORVASTATIN CALCIUM 80 MG TABLET PO SCH (20:37)
[2017-03-05] MEDS: VANCOMYCIN HCL 1 GM in 0.9 % SODIUM CHLORIDE 250 ML IV SCH (20:40)
[2017-03-06 06:13] LABS: BASOPHILS % 0.7 (0.0-1.5); EOSINOPHILS % 2.1 % (0.0-6.8); MEAN CORPUSCULAR HEMOGLOBIN 29.3 pg (28.0-34.0); MEAN CORPUSCULAR VOLUME 86.6 fl (80.0-100.0); MONOCYTES % 5.5 % (0.0-11.0); NEUTROPHILS # 17.2 # k/uL (1.4-7.7)
[2017-03-06] MEDS: INSULIN REGULAR, HUMAN 100 UNIT/ML 3ML VIAL SQ SCH ×2 (07:31→11:52)
[2017-03-06] MEDS: PANTOPRAZOLE SODIUM 40 MG TABLET PO SCH (08:46)
[2017-03-06] MEDS: DOXYCYCLINE MONOHYDRATE 100 MG CAPSULE PO SCH (08:46)
[2017-03-06] MEDS: LOSARTAN POTASSIUM 50 MG TABLET PO SCH (08:46)
[2017-03-06] MEDS: ACETAMINOPHEN 325 MG TABLET PO PRN (08:46)
[2017-03-06] MEDS: GABAPENTIN 300 MG CAPSULE PO SCH (08:46)
[2017-03-06] MEDS: VANCOMYCIN HCL 1 GM in 0.9 % SODIUM CHLORIDE 250 ML IV SCH (09:26)
[2017-03-06] MEDS: 0.9 % SODIUM CHLORIDE 1,000 ML IV SCH (09:30)
[2017-03-06 13:24] VITALS: BP 185/88
--- NOTE | 2017-03-08 09:29 | Discharge Summary ---
DATE OF ADMISSION: March 02, 2017 DATE OF DISCHARGE: March 06, 2017 DIAGNOSES ON THIS HOSPITALIZATION: 1. Cellulitis of buttocks. 2. Diabetes mellitus type 2, uncontrolled. 3. Hypertension. SUMMARIZATION OF ADMISSION HISTORY AND PHYSICAL: This is a 46-year-old female who presented to the emergency room with generally not feeling very well. She had seen her primary care provider, which is [facility], and had an abscess over her left ischium. Cultures were obtained. She was started on doxycycline but she continued to get worse. She had a fever. She was not feeling well and she presented to the emergency room with a fever of 101 and a white count of 30,000. In the emergency department, blood cultures were drawn, however, those were no growth, likely because she had been on doxycycline before they were drawn. We are still waiting on the final wound cultures which were obtained in [facility] office; however, they have grown out Strep, which is going to be fairly pansensitive and some Staph, which we are still waiting for the results on. HOSPITAL COURSE: She was admitted. She was started on IV Vancomycin. She was initially on 1250 mg IV daily. Her white count really did not come down significantly. On hospital day 4, it was increased to 1000 mg IV b.i.d. based on a trough report being somewhat low. Her renal function was stable during this hospitalization. She was discharged to home to return for IV infusions of vancomycin 1 gram IV b.i.d., which will be done in the [facility]fusion [facility]. The rest of her medications are as follows on discharge. MEDICATIONS ON DISCHARGE: 1. Atorvastatin 40 mg p.o. b.i.d. 2. Doxycycline 100 mg p.o. b.i.d. A prescription for this was sent to [facility]. 3. Gabapentin 300 mg p.o. t.i.d. 4. Glipizide 5 mg p.o. b.i.d. A prescription for this was sent to [facility]. 5. Ibuprofen 200 mg 2 to 4 tablets p.o. every 6 hours p.r.n. pain. 6. Losartan 50 mg p.o. daily. 7. Metformin 1000 mg p.o. b.i.d. 8. Protonix 40 mg p.o. daily. 9. Vancomycin will be as previously stated and given in the Infusion Center and will be at 1000 mg IV every 12 hours. cc: [facility] MTDD
== END 2017-03-06 15:08 | disposition home or self-care (01) | DRG 638 ==
LOC: ED 19:16 → SOUTH 21:40
PROVIDERS: ADMIT Physician Assistant; ATTEND Family Medicine
DX: E11.628 Type 2 diabetes mellitus with other skin complications (principal); L03.317 Cellulitis of buttock; I10 Essential (primary) hypertension
CPT/HCPCS: 36415; 76999; 80048; 80053; 80202; 81002; 85025; 87040; J1815; J2405; J3370; J7030; J7050; J7060; 99222; 99232; 99238; 99284; S1016

== ENCOUNTER 2017-03-06 21:00 | Outpatient (CLI) | payer OTHER ==
[2017-03-06 13:24] VITALS: BP 185/88
[~2017-03-06 21:00] MED LIST: 0.9 % SODIUM CHLORIDE 250 ML IV ONE; 0.9 % SODIUM CHLORIDE 250 ML IV.SOLN IV ONE; SALINE FLUSH 10 ML DISP.SYRIN IVF ONE; VANCOMYCIN HCL 1 GM VIAL IV ONE
== END 2017-03-06 21:02 ==
LOC: INF 21:00
PROVIDERS: ATTEND Family Medicine
DX: A41.9 Sepsis, unspecified organism (principal); R73.9 Hyperglycemia, unspecified
CPT/HCPCS: J3370; J7050; 96365

== ENCOUNTER 2017-03-07 08:49 | Outpatient (CLI) | payer OTHER ==
[2017-03-06 13:24] VITALS: BP 185/88
[2017-03-07] MEDS: SALINE FLUSH 10 ML DISP.SYRIN IV ONE (09:00)
[2017-03-07] MEDS ORDERED: VANCOMYCIN HCL 1 GM VIAL IV ONE ×4 (09:00→20:59)
[2017-03-07] MEDS ORDERED: 0.9 % SODIUM CHLORIDE 250 ML IV.SOLN IV ONE ×2 (09:00)
[2017-03-07] MEDS ORDERED: SALINE FLUSH 10 ML DISP.SYRIN IVF ONE ×2 (09:00)
[2017-03-07] MEDS: VANCOMYCIN HCL 1 GM in 0.9 % SODIUM CHLORIDE 500 ML IV ONE (09:00)
[2017-03-07] MEDS ORDERED: 0.9 % SODIUM CHLORIDE 250 ML IV ONE ×2 (09:03→20:59)
== END 2017-03-07 08:50 ==
LOC: INF 08:49
PROVIDERS: ATTEND Family Medicine
DX: A41.9 Sepsis, unspecified organism (principal); R73.9 Hyperglycemia, unspecified
CPT/HCPCS: 96365; 96366; J3370; J7050; J7060

== ENCOUNTER 2017-03-08 08:09 | Outpatient (CLI) | payer OTHER ==
[~2017-03-08 08:09] MED LIST changes: -0.9 % SODIUM CHLORIDE 250 ML IV ONE
[2017-03-08] MEDS ORDERED: VANCOMYCIN HCL 1 GM in 0.9 % SODIUM CHLORIDE 250 ML IV SCH (09:00)
[2017-03-08 09:04] LABS: MEAN CORPUSCULAR HEMOGLOBIN 29.4 pg (28.0-34.0); MEAN CORPUSCULAR VOLUME 86.6 fl (80.0-100.0)
[2017-03-08 09:42] LABS: EOSINOPHILS % 3 % (0-7); MONOCYTES % 5 % (0-11); SEGMENTED NEUTROPHILS % 67 % (39-79)
== END 2017-03-08 08:10 ==
LOC: INF 08:09
PROVIDERS: ATTEND Family Medicine
DX: A41.9 Sepsis, unspecified organism (principal); R73.9 Hyperglycemia, unspecified
CPT/HCPCS: 36415; 85025; J3370; J7050; 96365; 96366

== ENCOUNTER 2018-01-14 20:36 | Emergency (ER) | payer OTHER ==
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
[2018-01-14] MEDS: DIPH,PERTUSS(ACELL),TET VAC/PF 0.5 ML DISP.SYRIN IM ONE (22:45)
[2018-01-14] MEDS: SILVER SULFADIAZINE 25 GM 1 APPL TUBE TP ONE (22:48)
[2018-01-14] MEDS: CEPHALEXIN 250 MG CAPSULE PO ONE (22:50)
[2018-01-15] MEDS: CEPHALEXIN 250 MG CAPSULE ONE (00:10)
[2018-01-15] MEDS: CEPHALEXIN 250 MG/5 ML BTL PO ONE (00:11)
[2018-01-15 00:17] VITALS: BP 156/74
== END 2018-01-14 23:11 | disposition home or self-care (01) ==
LOC: ED 20:36
DX: T25.129A Burn of first degree of unspecified foot, initial encounter (principal); X58.XXXA Exposure to other specified factors, initial encounter; Y92.9 Unspecified place or not applicable; Y93.9 Activity, unspecified; Y99.9 Unspecified external cause status
CPT/HCPCS: 90471; 90715; 99282

== ENCOUNTER 2018-03-29 14:32 | Outpatient (CLI) | payer OTHER ==
[2018-01-15 00:17] VITALS: BP 156/74
== END 2018-03-29 14:33 ==
LOC: LAB 14:32
PROVIDERS: ATTEND Nurse Practitioner Family
DX: M10.9 Gout, unspecified (principal)
CPT/HCPCS: 36415; 84550; 85651

== ENCOUNTER 2018-05-17 14:32 | Outpatient (CLI) | payer OTHER ==
[2018-01-15 00:17] VITALS: BP 156/74
--- NOTE | 2018-05-17 17:30 | Diagnostic Imaging Report ---
MEME CABRAL (DIANNE) - OP [facility] [address] [address] Report Submission Date: May 17, 2018 3:14:45 PM CDT Patient Study Name: GRAZYNA STOVALL Date: May 17, 2018 2:39:37 PM CDT Modality Type: DX Gender: F Description: CHEST : 70 Institution: [facility] Physician: MEME CABRAL (DIANNE) - OP Examination: PA and lateral chest. History: Evaluate lung eng. PT STATES COUGH AND DIFFICULTY BREATHING X 1 WEEK. PT HAS BEEN A SMOKER FOR 33 YEARS. (Hx) Comparison exam: None provided. Findings: PA and lateral views of the chest demonstrates a prominent cardiac and mediastinal silhouette. Diffuse interstitial prominence. No blunting of the costophrenic margins. Osseous structures are appropriate for age. Impression: Diffuse interstitial prominence suggesting increased volume status. No effusion. Electronically signed on May 17, 2018 3:14:45 PM CDT by: Tang COX
== END 2018-05-17 14:33 ==
LOC: RAD 14:32
PROVIDERS: ATTEND Nurse Practitioner Family
DX: R05 Cough (principal)
CPT/HCPCS: 71046

== ENCOUNTER 2018-07-06 16:11 | Outpatient (CLI) | payer OTHER ==
[2018-01-15 00:17] VITALS: BP 156/74
[2018-07-06 16:56] LABS: eGFR (Non-African) 28
== END 2018-07-06 16:12 ==
LOC: LAB 16:11
PROVIDERS: ATTEND Nurse Practitioner Family
DX: N28.9 Disorder of kidney and ureter, unspecified (principal)
CPT/HCPCS: 36415; 80053; 85651; 86140

== ENCOUNTER 2018-12-15 10:10 | Outpatient (CLI) | payer OTHER ==
[2018-12-11 00:32] VITALS: BP 159/78
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
== END 2018-12-15 10:12 ==
LOC: POD 10:10
PROVIDERS: ATTEND Podiatrist Foot & Ankle Surgery
DX: L97.519 Non-pressure chronic ulcer of other part of right foot with unspecified severity (principal); R60.9 Edema, unspecified
CPT/HCPCS: 11042; 93971; A4554

== ENCOUNTER 2019-03-07 14:17 | Outpatient (CLI) | payer OTHER ==
[2018-12-11 00:32] VITALS: BP 159/78
== END 2019-03-07 14:49 ==
LOC: NEPHRO 14:17
PROVIDERS: ATTEND Internal Medicine Nephrology
DX: E11.9 Type 2 diabetes mellitus without complications (principal); I10 Essential (primary) hypertension; R94.4 Abnormal results of kidney function studies; R60.0 Localized edema
CPT/HCPCS: 99214

== ENCOUNTER 2019-03-08 10:20 | Outpatient (CLI) | payer OTHER ==
[2018-12-11 00:32] VITALS: BP 159/78
[2019-03-08 11:10] LABS: A1C 11.6 % (<5.7)
[2019-03-08 11:15] LABS: eGFR (Non-African) 21
[2019-03-08 11:29] LABS: APPEARANCE,URINE CLEAR (CLEAR); BASOPHILS % 0.6 % (0.0-1.5); COLOR,URINE YELLOW (YELLOW); HYPOCHROMASIA 1+ (NEGATIVE); OCCULT BLOOD,URINE TRACE-INTACT (NEGATIVE); PH URINE 5.5 (5.0 - 8.0); SEGMENTED NEUTROPHILS % 70 % (39-79); UROBILINOGEN URINE 0.2 Eu (0.2-1.0)
--- NOTE | 2019-03-09 13:12 | Diagnostic Imaging Report ---
RAGHAV KING [facility] [address] [facility] [address] [place], [place]. [address] Report Submission Date: Mar 09, 2019 11:51:59 AM CDT Patient Study Name: GRAZYNA STOVALL Date: Mar 08, 2019 10:36:15 AM CDT Modality Type: DX Gender: F Description: FOOT 3 VIEWS OR MORE : 70 Institution: [facility] Physician: RAGHAV KING FOOT RIGHT HISTORY: INJURY OF RT FOOT, ECCHYMOSIS AND HYPERMOBILITYOF MTT JOINT. FINDINGS: Standing AP, lateral and oblique views of the right foot demonstrates destruction, debris and deformity of the midfoot joints with near vertical positioning of the talus consistent with the neuropathic joint disease ( Charcot joint ). Soft tissue swelling is prominent. No other acute bone or joint abnormality is seen. Calcaneal spur at the plantar fascia identified. IMPRESSION: Midfoot Charcot joint appearance. Electronically signed on Mar 09, 2019 11:51:59 AM CDT by: Gasper COX
== END 2019-03-08 10:23 ==
LOC: RAD 10:20
PROVIDERS: ATTEND Podiatrist Foot & Ankle Surgery
DX: I12.9 Hypertensive chronic kidney disease with stage 1 through stage 4 chronic kidney disease, or unspecified chronic kidney disease (principal); E11.22 Type 2 diabetes mellitus with diabetic chronic kidney disease; N18.3 Chronic kidney disease, stage 3 (moderate)
CPT/HCPCS: 36415; 73630; 80053; 81002; 83036; 84100; 85025

== ENCOUNTER 2019-05-16 14:17 | Outpatient (CLI) | payer OTHER ==
[2018-12-11 00:32] VITALS: BP 159/78
== END 2019-05-16 14:50 ==
LOC: NEPHRO 14:17
PROVIDERS: ATTEND Internal Medicine Nephrology
DX: E11.21 Type 2 diabetes mellitus with diabetic nephropathy (principal); I10 Essential (primary) hypertension
CPT/HCPCS: 99213

== ENCOUNTER 2019-05-17 09:56 | Outpatient (CLI) | payer OTHER ==
[2018-12-11 00:32] VITALS: BP 159/78
[2019-05-17 10:45] LABS: APPEARANCE,URINE CLOUDY (CLEAR); COLOR,URINE YELLOW (YELLOW)
[2019-05-17 10:46] LABS: OCCULT BLOOD,URINE TRACE (NEGATIVE); UROBILINOGEN URINE 0.2 Eu (0.2-1.0)
[2019-05-17 11:00] LABS: BASOPHILS % 0.5 % (0.0-1.5); NEUTROPHILS # 6.4 # k/uL (1.4-7.7)
[2019-05-17 11:01] LABS: ANISOCYTOSIS 1+ (NEGATIVE); SEGMENTED NEUTROPHILS % 67 % (39-79)
[2019-05-17 11:50] LABS: eGFR (Non-African) 18
[2019-05-17 11:51] LABS: A1C 8.5 % (<5.7)
== END 2019-05-17 10:02 | disposition home or self-care (01) ==
LOC: LAB 09:56
PROVIDERS: ATTEND Internal Medicine Nephrology
DX: E11.22 Type 2 diabetes mellitus with diabetic chronic kidney disease (principal); I12.9 Hypertensive chronic kidney disease with stage 1 through stage 4 chronic kidney disease, or unspecified chronic kidney disease; N18.9 Chronic kidney disease, unspecified; J06.9 Acute upper respiratory infection, unspecified
CPT/HCPCS: 36415; 80053; 81002; 83036; 84100; 85025

== ENCOUNTER 2019-07-28 11:53 | Outpatient (CLI) | payer OTHER ==
[2018-12-11 00:32] VITALS: BP 159/78
[2019-07-28 12:29] LABS: eGFR (Non-African) 20
== END 2019-07-28 11:58 ==
LOC: LAB 11:53
PROVIDERS: ATTEND Nurse Practitioner Family
DX: N28.9 Disorder of kidney and ureter, unspecified (principal)
CPT/HCPCS: 36415; 80053